=== PATIENT | female | born 1960 | race Caucasian/White ===

== ENCOUNTER 2020-07-12 16:24 | Emergency (ER) | payer MEDICAID ==
[~2020-07-12] VITALS: Ht 160 cm; Wt 77.3 kg
[~2020-07-12 16:24] MED LIST: AMLO5TAB4 PO; HYDR12.5 PO; NO HOME MEDS
[2020-07-12 16:28] VITALS: BP 150/93
[2020-07-12] MEDS ORDERED: LIDOcaine 1% W/epiNEPHrine 1:200,000 10ml vial IJ ONE (16:55)
[2020-07-12] MEDS ORDERED: CEPH250T PO (17:19)
[2020-07-12] MEDS ORDERED: BACDS PO (17:19)
== END 2020-07-12 17:37 | disposition home or self-care (01) ==
LOC: ER 16:25
DX: L02.211 Cutaneous abscess of abdominal wall (principal); E78.00 Pure hypercholesterolemia, unspecified; I10 Essential (primary) hypertension; J45.909 Unspecified asthma, uncomplicated; M19.90 Unspecified osteoarthritis, unspecified site; F41.9 Anxiety disorder, unspecified; F32.9 Major depressive disorder, single episode, unspecified; Z56.0 Unemployment, unspecified; Z79.2 Long term (current) use of antibiotics; Z79.899 Other long term (current) drug therapy
CPT/HCPCS: 10060; 99284

== ENCOUNTER 2021-05-17 17:24 | Emergency (ER) | payer MEDICAID ==
[~2021-05-17] VITALS: Ht 160 cm; Wt 59.1 kg
[2021-05-17 17:39] VITALS: BP 140/84
--- NOTE | 2021-05-17 19:47 | NUR ---
PT SEEN BY NYLA ALDANA IN ROOM T2 DURING SHIFT CHANGE. PT NOTIN THE ROM WHEN I WENT IN TO DO ASSESSMENT, CHARTING, AND DRESSING CHANGE AND DC INSTRUCTIONS. PROVIDER UPDATED OF THIS.
== END 2021-05-17 19:49 | disposition home or self-care (01) ==
LOC: ER 17:27
DX: L97.329 Non-pressure chronic ulcer of left ankle with unspecified severity (principal); S91.002A Unspecified open wound, left ankle, initial encounter; E78.00 Pure hypercholesterolemia, unspecified; I10 Essential (primary) hypertension; J45.909 Unspecified asthma, uncomplicated; M19.90 Unspecified osteoarthritis, unspecified site; Z72.89 Other problems related to lifestyle; Z56.0 Unemployment, unspecified; Z79.899 Other long term (current) drug therapy
CPT/HCPCS: 99281; 99282

== ENCOUNTER 2022-01-14 19:37 | Emergency (ER) | payer MEDICAID ==
[~2022-01-14] VITALS: Ht 160 cm; Wt 54.5 kg
[2022-01-14 19:42] VITALS: BP 159/95
== END 2022-01-14 21:19 | disposition left against medical advice (07) ==
LOC: ER 19:37
DX: M79.609 Pain in unspecified limb (principal); Z53.21 Procedure and treatment not carried out due to patient leaving prior to being seen by health care provider

== ENCOUNTER 2022-01-19 19:25 | Emergency (ER) | payer MEDICAID ==
[~2022-01-19] VITALS: Ht 160 cm; Wt 56.8 kg
[2022-01-19 19:44] VITALS: BP 142/73
== END 2022-01-19 22:54 | disposition left against medical advice (07) ==
LOC: ER 19:26
DX: M79.605 Pain in left leg (principal); M79.604 Pain in right leg; Z53.21 Procedure and treatment not carried out due to patient leaving prior to being seen by health care provider

== ENCOUNTER 2022-01-25 20:53 | Emergency (ER) | payer MEDICAID | END 2022-01-25 22:26 | disposition left against medical advice (07) | LOC: ER 20:54 | DX: R52 Pain, unspecified (principal); Z53.21 Procedure and treatment not carried out due to patient leaving prior to being seen by health care provider ==

== ENCOUNTER 2022-01-30 01:05 | Emergency (ER) | payer MEDICAID ==
[~2022-01-30] VITALS: Ht 160 cm; Wt 61.4 kg
[2022-01-30 01:29] VITALS: BP 151/100
== END 2022-01-30 03:50 | disposition left against medical advice (07) ==
LOC: ER 01:05
DX: M25.552 Pain in left hip (principal); Z53.21 Procedure and treatment not carried out due to patient leaving prior to being seen by health care provider; W19.XXXA Unspecified fall, initial encounter; Y93.89 Activity, other specified; Y92.89 Other specified places as the place of occurrence of the external cause; Y99.8 Other external cause status

== ENCOUNTER 2022-07-03 16:22 | Emergency (ER) | payer MEDICAID ==
[~2022-07-03] VITALS: Ht 160 cm; Wt 54.5 kg
[2022-07-03 16:35] VITALS: BP 123/75
[2022-07-03] MEDS ORDERED: HYDROcodone/acetaminophen 5mg/325mg tablet PO ONE (19:45)
[2022-07-03] MEDS ORDERED: HYDR-3965 PO (19:59)
== END 2022-07-03 20:26 | disposition home or self-care (01) ==
LOC: ER 16:23
DX: S93.401A Sprain of unspecified ligament of right ankle, initial encounter (principal); E78.00 Pure hypercholesterolemia, unspecified; I10 Essential (primary) hypertension; E03.9 Hypothyroidism, unspecified; F31.9 Bipolar disorder, unspecified; J45.909 Unspecified asthma, uncomplicated; Z79.899 Other long term (current) drug therapy; X50.0XXA Overexertion from strenuous movement or load, initial encounter; Y93.89 Activity, other specified; Y92.89 Other specified places as the place of occurrence of the external cause; Y99.8 Other external cause status
CPT/HCPCS: 29515; 73600; 99284; L1930

== ENCOUNTER 2022-08-03 17:32 | Emergency (ER) | payer MEDICAID ==
[2022-08-03] MEDS ORDERED: SULF1TAB45 PO (20:14)
[2022-08-03] MEDS ORDERED: ketorolac tromethamine 15mg/ml inj. IM ONE (20:15)
[2022-08-03] MEDS ORDERED: sulfamethoxazole/trimethoprim DS (800/160mg) tablet PO ONE (20:15)
== END 2022-08-03 20:45 | disposition home or self-care (01) ==
LOC: ER 17:33
DX: L03.317 Cellulitis of buttock (principal); I10 Essential (primary) hypertension; E78.00 Pure hypercholesterolemia, unspecified; J45.909 Unspecified asthma, uncomplicated; F31.9 Bipolar disorder, unspecified; Z56.0 Unemployment, unspecified; E07.9 Disorder of thyroid, unspecified; Z79.899 Other long term (current) drug therapy
CPT/HCPCS: 96372; 99283; J1885

== ENCOUNTER 2023-05-22 17:00 | Emergency (ER) | payer MEDICAID ==
[~2023-05-22] VITALS: Ht 160 cm; Wt 54.5 kg
[~2023-05-22 17:00] MED LIST changes: +AMLO5TAB PO; -AMLO5TAB4 PO; +ATOR40TA71 PO; -HYDR12.5 PO; -NO HOME MEDS
[2023-05-22 17:16] VITALS: BP 155/96; PULSE 127; RESP 20; TEMP 98.4; O2SAT 96
[2023-05-22] MEDS ORDERED: LIDOcaine 1% w/EPI 1:100,000 inj. MDV 50 ML VIAL SQ ONE (17:30)
[2023-05-22] MEDS ORDERED: TETanus/Pertussis (Acell)/Diphther VAC/PF (Tdap-Adult) 0.5ml syringe IMVAC ONE (17:30)
[2023-05-22] MEDS ORDERED: DOXYCYCLINE 100MG CAPSULE PO STA (17:54)
[2023-05-22] MEDS ORDERED: cephalexin 250mg capsule PO ONE (17:55)
[2023-05-22] MEDS ORDERED: DOXY-356 PO (17:55)
[2023-05-22] MEDS ORDERED: CEPH250T PO (17:55)
== END 2023-05-22 18:14 | disposition home or self-care (01) ==
LOC: ER 17:01
DX: L02.511 Cutaneous abscess of right hand (principal); I11.9 Hypertensive heart disease without heart failure; E78.00 Pure hypercholesterolemia, unspecified; J44.9 Chronic obstructive pulmonary disease, unspecified; E03.9 Hypothyroidism, unspecified; F31.9 Bipolar disorder, unspecified; Z79.899 Other long term (current) drug therapy
CPT/HCPCS: 26010; 90471; 90715; 99283; A6449

== ENCOUNTER 2023-05-24 13:06 | Emergency (ER) | payer MEDICAID ==
[~2023-05-24] VITALS: Ht 160 cm; Wt 54.5 kg
[~2023-05-24 13:06] MED LIST changes: +CEPH250T PO; +DOXY-356 PO
[2023-05-24 14:19] VITALS: BP 124/77; PULSE 103; RESP 20; TEMP 98.2; O2SAT 97
[2023-05-24] MEDS ORDERED: LIDOcaine 1% W/epiNEPHrine 1:200,000 10ml vial IJ ONE ×2 (15:55→16:30)
[2023-05-24] MEDS ORDERED: DOXYCYCLINE 100MG CAPSULE PO STA (15:55)
[2023-05-24] MEDS ORDERED: cephalexin 250mg capsule PO ONE (15:55)
[2023-05-24] MEDS ORDERED: DOXY-356 PO (16:36)
[2023-05-24] MEDS ORDERED: CEPH250T PO (16:36)
[2023-05-24] MEDS ORDERED: LIDOcaine 1% W/epiNEPHrine 1:100,000 20ml vial IJ ONE (16:55)
== END 2023-05-24 18:25 | disposition home or self-care (01) ==
LOC: ER 13:06
DX: L02.511 Cutaneous abscess of right hand (principal); E78.00 Pure hypercholesterolemia, unspecified; I10 Essential (primary) hypertension; J44.9 Chronic obstructive pulmonary disease, unspecified; E03.9 Hypothyroidism, unspecified; M19.90 Unspecified osteoarthritis, unspecified site; Z79.899 Other long term (current) drug therapy; Z79.2 Long term (current) use of antibiotics
CPT/HCPCS: 26010; 99284

== ENCOUNTER 2023-06-03 12:06 | Emergency (ER) | payer MEDICAID ==
[~2023-06-03 12:06] MED LIST changes: -CEPH250T PO; -DOXY-356 PO
== END 2023-06-03 13:35 | disposition left against medical advice (07) ==
LOC: ER 12:07
DX: L55.9 Sunburn, unspecified (principal); Z53.21 Procedure and treatment not carried out due to patient leaving prior to being seen by health care provider